=== PATIENT | male | born 1965 | race Caucasian/White ===

== ENCOUNTER 2020-10-20 22:28 | Emergency (ER) | payer OTHER ==
[~2020-10-20] VITALS: Ht 190.5 cm; Wt 122.5 kg
[2020-10-20] MEDS ORDERED: NEURONTIN300 MG PO (22:49)
[2020-10-20] MEDS ORDERED: HYDROCODON-ACE1 EAC7 PO (22:50)
[2020-10-20] MEDS ORDERED: ASA81BEC PO (22:51)
[2020-10-20] MEDS ORDERED: BACLOFEN 10MG T10 MG PO (22:51)
[2020-10-20] MEDS ORDERED: EFFER-K 10 MEQ10 ME1 PO (22:52)
[2020-10-20] MEDS ORDERED: PROSCAR 5MG TABL5 M1 PO (22:53)
[2020-10-20] MEDS ORDERED: FLOMAX0.4 MG PO (22:53)
[2020-10-21 00:53] LABS: ABSOLUTE NEUTROPHILS 15.7 thou/uL (1.4-8.2); BASOPHILS 0.1 % (0.0-2.0); EOSINOPHILS 0.1 % (0.0-3.0); HEMATOCRIT 41.2 % (42.0-52.0); HEMOGLOBIN 13.7 gm/dL (14.0-18.0); LYMPHOCYTES 5.3 % (24.0-44.0); MCH 29.8 pg (26.0-34.0); MCHC 33.2 g/dL (28.0-37.0); MCV 89.8 fL (80.0-100.0); MONOCYTES 7.5 % (1.0-8.0); PLATELET COUNT 312 thou/uL (150-400); RBC 4.59 mil/uL (4.50-6.00); WBC 18.1 thou/uL (4.0-11.0)
[2020-10-21 01:00] LABS: ANION GAP 10 mmol/L (7-16); BUN 19 mg/dL (7-18); CHLORIDE 101 mmol/L (98-107); CO2 26 mmol/L (21-32); GLUCOSE 131 mg/dL (74-106); POTASSIUM 3.9 mmol/L (3.5-5.1); SODIUM 137 mmol/L (136-145)
[2020-10-21 01:10] LABS: ALBUMIN 3.1 g/dL (3.4-5.0); SGOT 10 U/L (15-37); SGPT 47 U/L (16-63); TOTAL BILIRUBIN 0.9 mg/dL (0.2-1.0); TOTAL PROTEIN 7.5 g/dL (6.4-8.2); TROPONIN-I <0.06 ng/mL (<0.06)
[2020-10-21 02:25] LABS: URINE BILIRUBIN NEGATIVE (Negative); URINE BLOOD NEGATIVE (Negative); URINE CLARITY CLEAR; URINE COLOR YELLOW; URINE GLUCOSE-RANDOM* NEGATIVE (Negative); URINE KETONES NEGATIVE (Negative); URINE LEUKOCYTES-REFLEX NEGATIVE (Negative); URINE NITRITE-REFLEX NEGATIVE (Negative); URINE PROTEIN (DIPSTICK) NEGATIVE (Negative); URINE SPECIFIC GRAVITY 1.015 (1.005-1.035); URINE UROBILINOGEN 0.2 E.U./dl (0.2-1.0)
[2020-10-21 02:46] VITALS: BP 149/96
--- NOTE | 2020-10-22 07:22 | EKG ---
[address] [place] [address] ELECTROCARDIOGRAM REPORT Name: ELSYMELI Room #: DEP RIVKA Arteaga#: [id number] Admission: 10/20/20 Attend Phys: Discharge: 10/21/20 Date of : 63 Report #: [id number] [facility] ED Test Date: 2020-10-20 Test Time: 22:36:48 Pat Name: MELI CHIN Department: Room: Gender: M Concreting Supervisor: MPARGilberto : 1965 Requested By: Russ Esquivel Order Number: [id number] MD: Henri Cerna Measurements Intervals [place] Rate: 106 P: 30 AL: 143 QRS: -3 QRSD: 101 T: 7 QT: 333 QTc: 443 Interpretive Statements Sinus tachycardia Baseline wander in lead(s) V4,V5,V6 No previous ECG available for comparison Electronically Signed On 10-22-2020 7:21:54 CDT by Henri Cerna [email or web address] <ELECTRONICALLY SIGNED> By: Henri Cerna MD, [facility] 10/22/20 0721 [id number] Henri Cerna MD, FACC /EPI
== END 2020-10-21 02:47 | disposition home or self-care (01) ==
LOC: ER 22:28
PROVIDERS: Emergency Medicine
DX: R53.83 Other fatigue (principal); R53.1 Weakness; Z79.899 Other long term (current) drug therapy